=== PATIENT | female | born 1945 | race Caucasian/White ===

== ENCOUNTER 2017-10-20 08:18 | Emergency (ER) | payer OTHER ==
--- OUTSIDE RECORDS SUMMARY | 2017-10-20 08:21 | XMS REPORT | Clinical Summary ---
:1945 Author Organization [facility] Address [address] [place] [address] Care Team Providers Name Role Phone Rommel Sands MD Primary Care Provider Allergies Active Allergy Reactions Severity Noted Date Comments Codeine 09/19/2016 Current Medications Prescription Sig. Disp. Refills Start Date End Date Status metFORMIN (GLUCOPHAGE) 1,000 mg 2 06/20/2016 Active 1,000 mg tablet (two) times a day. hydroCHLOROthiazide 08/30/2016 Active (HYDRODIURIL) 25 MG tablet amLODIPine (NORVASC) 5 08/15/2016 Active mg tablet fenofibrate (TRICOR) 145 Take 145 mg Active MG tablet by mouth daily. aspirin (ECOTRIN) 81 MG Take 81 mg Active enteric coated tablet by mouth daily. losartan (COZAAR) 100 MG Take 100 mg Active tablet by mouth daily. glipiZIDE (GLUCOTROL) 5 Take 5 mg Active MG tablet by mouth 2 (two) times a day before meals. cilostazol (PLETAL) 100 TAKE ONE 60 tablet 1 04/21/2017 Active MG tablet TABLET BY MOUTH TWICE A DAY allopurinol (ZYLOPRIM) Take 100 mg Active 100 MG tablet by mouth daily. qb-wzmy-kjpay-lycopene-g Take by Active florenciogo 400-300-120 mouth. mcg-mcg-mg tablet allopurinol (ZYLOPRIM) 08/15/2016 Discontinued 100 MG tablet 7 cilostazol (PLETAL) 100 Take 1 60 tablet 2 11/13/2016 MG tablet tablet (100 7 mg total) by mouth 2 (two) times a day for 90 days. Active Problems Problem Noted Date PAD (peripheral artery disease) 11/13/2016 Last Assessment & Plan: E. Some, but inadequate improvement with Pletal. Plan for CTA. DM (diabetes mellitus) 11/13/2016 COPD (chronic obstructive pulmonary disease) 11/13/2016 Essential hypertension 11/13/2016 HLD (hyperlipidemia) 11/13/2016 Pancreatic pseudocyst 11/13/2016 Encounters Date Type Specialty Care Team Description 10/10/2017 Office Visit Endocrinology Bria Navarro MD Type 2 diabetes mellitus with peripheral vascular disease (Primary Dx); Chronic pancreatitis, unspecified pancreatitis type; Age related osteoporosis, unspecified pathological fracture presence 04/21/2017 Refill Cardiovascular Maxwell Vegas MD 03/28/2017 Telephone Cardiovascular Alessia Sibley 02/28/2017 Telephone Cardiovascular Maxwell Vegas MD 02/26/2017 Office Visit Cardiovascular Maxwell Vegas PAD (peripheral artery MD disease) (Primary Dx) 11/13/2016 Office Visit Cardiovascular Maxwell Vegas PAD (peripheral artery MD disease) (Primary Dx) after 10/19/2016 Family History Relation Name Status Comments Mother Social History Tobacco Use Types Packs/Day Years Used Date Former Smoker Quit: 2008 Sex Assigned at Date Recorded Not on file Last Filed Vital Signs Vital Sign Reading Time Taken Blood Pressure 155/68 10/10/2017 9:24 AM [employer] Pulse 85 10/10/2017 9:24 AM [employer] Temperature 36.3 C (97.4 F) 10/10/2017 9:24 AM [employer] Respiratory Rate 16 02/26/2017 2:45 PM CDT Oxygen Saturation 96% 10/10/2017 9:24 AM [employer] Inhaled Oxygen Concentration - - Weight 70.8 kg (156 lb) 10/10/2017 9:24 AM [employer] Height 160 cm (5' 3") 10/10/2017 9:24 AM [employer] Body Mass Index 27.63 10/10/2017 9:24 AM [employer] Plan of Treatment Date Type Specialty Care Team Description 01/16/2018 Office Visit Endocrinology Bria Navarro MD [address] [address] Health Maintenance Due Date Last Done Comments FOOT EXAM 1953 OPHTHALMOLOGY EXAM 1953 URINE MICROALBUMIN 1953 COLONOSCOPY 1993 MAMMOGRAM 1993 ZOSTER VACCINE 2003 PNEUMOCOCCAL POLYSACCHARIDE VACCINE AGE 65 AND OVER 2008 PNEUMOCOCCAL-13 2008 INFLUENZA VACCINE 03/06/2017 Results Bone Density Peripheral (10/10/2017 11:30 AM) Specimen Performing Laboratory [address] [address] Narrative EXAMINATION:BONE DENSITY PERIPHERAL CLINICAL HISTORY:M81.0 Age-related osteoporosis without current pathological fracture, Osteoporosis COMPARISON:None. The results of this study expressed as bone mineral density (BMD) were as follows: Left Forearm (Radius 33%): BMD: 0.827 g/cm2 T-Score: -0.7 Previous: percent Impression: Bone Mineral Density measurements as noted. [id number] A copy of this scans including a report detailing these results will follow. Note: The world health organization (WHO) has classified the patient's T-score as follows: Above (-1) as normal (-1) to (-2.5) as low (osteopenia) Below (-2.5) as abnormally low (osteoporosis, increased fracture risk) [id number] Procedure Note Interface, Radiology Results Incoming - 10/10/2017 3:15 PM [employer] EXAMINATION: BONE DENSITY PERIPHERAL CLINICAL HISTORY: M81.0 Age-related osteoporosis without current pathological fracture, Osteoporosis COMPARISON: None. The results of this study expressed as bone mineral density (BMD) were as follows: Left Forearm (Radius 33%): BMD: 0.827 g/cm2 T-Score: -0.7 Previous: percent Impression: Bone Mineral Density measurements as noted. [id number] A copy of this scans including a report detailing these results will follow. Note: The world health organization (WHO) has classified the patient's T-score as follows: Above (-1) as normal (-1) to (-2.5) as low (osteopenia) Below (-2.5) as abnormally low (osteoporosis, increased fracture risk) [id number] Bone Density (10/10/2017 11:30 AM) Specimen Performing Laboratory [address] [address] Narrative EXAMINATION:BONE DENSITY CLINICAL HISTORY:M81.0 Age-related osteoporosis without current pathological fracture, Osteoporosis COMPARISON:None. The results of this study expressed as bone mineral density (BMD) were as follows: AP spine (L1-L4) BMD: 1.264 g/cm2 T-Score: 0.6 Previous: % change from prior BMD Dual Femur (Total Mean): BMD: 1.053 g/cm2 T-Score: 0.4 Previous:% change from prior BMD Dual femur FRAX: Risk factors: None. 10 year probability of fracture: 1.Major osteoporotic: 15.3% 2.Hip: 2.3% 3.Based on dual femur right neck BMD Impression: Bone mineral density values as above. A copy of this scans including a report detailing these results will follow. Note: The world health organization (WHO) has classified the patient's T-score as follows: Above (-1) as normal (-1) to (-2.5) as low (osteopenia) Below (-2.5) as abnormally low (osteoporosis, increased fracture risk) [id number] Procedure Note Hm Interface, Radiology Results Incoming - 10/10/2017 2:38 PM [employer] EXAMINATION: BONE DENSITY CLINICAL HISTORY: M81.0 Age-related osteoporosis without current pathological fracture, Osteoporosis COMPARISON: None. The results of this study expressed as bone mineral density (BMD) were as follows: AP spine (L1-L4) BMD: 1.264 g/cm2 T-Score: 0.6 Previous: % change from prior BMD Dual Femur (Total Mean): BMD: 1.053 g/cm2 T-Score: 0.4 Previous: % change from prior BMD Dual femur FRAX: Risk factors: None. 10 year probability of fracture: 1. Major osteoporotic: 15.3% 2. Hip: 2.3% 3. Based on dual femur right neck BMD Impression: Bone mineral density values as above. A copy of this scans including a report detailing these results will follow. Note: The world health organization (WHO) has classified the patient's T-score as follows: Above (-1) as normal (-1) to (-2.5) as low (osteopenia) Below (-2.5) as abnormally low (osteoporosis, increased fracture risk) [id number] after 10/19/2016 Insurance Payer Benefit Plan / Group Subscriber ID Type Phone Address [facility] x[facility] HMO [address] [place] [address]
--- OUTSIDE RECORDS SUMMARY | 2017-10-20 08:22 | XMS REPORT ---
:1945 [facility] Address [address] [place] [address] Care Team Providers Name Role Phone RICHELLE TEJEDA Unavailable Unavailable Problems This patient has no known problems. Allergies, Adverse Reactions, Alerts This patient has no known allergies or adverse reactions. Medications This patient has no known medications. Results Test Description Test Time Test Comments Text Results Atomic Results Result Comments MISCELLANEOUS LAB ORDER 2017-07-09 14:50:00 Test Item Value Reference Range Comments SCAN RESULT (test [id number]=[id number]) HEMOGLOBIN AND [id number] 14:19:00 Test Item Value Reference Range Comments HEMOGLOBIN (BEAKER) (test nabi=225) 9.6 GM/DL 11.2-15.7 HEMATOCRIT (BEAKER) (test kukw=901) 28.7 % 34.1-44.9 POCT-GLUCOSE [id number] 12:14:00 Test Item Value Reference Range Comments POC-GLUCOSE METER (BEAKER) 236 mg/dL 70-110 TESTED AT [address] (test kstz=6693) [place] [address] [id number] 07:24:00 Test Item Value Reference Range Comments MAGNESIUM (BEAKER) (test dhes=482) 1.6 mg/dL 1.6-2.6 [id number] 07:24:00 Test Item Value Reference Range Comments LIPASE (BEAKER) (test gypc=669) 84 U/L 8-78 POCT-GLUCOSE [id number] 07:17:00 Test Item Value Reference Range Comments POC-GLUCOSE METER (BEAKER) 205 mg/dL 70-110 TESTED AT [address] (test xybi=7890) [facility] [address] HEMOGLOBIN AND [id number] 06:38:00 Test Item Value Reference Range Comments HEMOGLOBIN (BEAKER) (test khlb=882) 9.0 GM/DL 11.2-15.7 HEMATOCRIT (BEAKER) (test tpcy=142) 27.0 % 34.1-44.9 POCT-GLUCOSE [id number] 22:59:00 Test Item Value Reference Range Comments POC-GLUCOSE METER (BEAKER) 209 mg/dL 70-110 TESTED AT [address] (test palx=8256) [place] [address] HEMOGLOBIN AND [id number] 19:32:00 Test Item Value Reference Range Comments HEMOGLOBIN (BEAKER) (test yrwr=103) 7.4 GM/DL 11.2-15.7 HEMATOCRIT (BEAKER) (test wwtm=250) 22.4 % 34.1-44.9 POCT-GLUCOSE [id number] 17:08:00 Test Item Value Reference Range Comments POC-GLUCOSE METER (BEAKER) 257 mg/dL 70-110 TESTED AT [address] (test hkis=2929) [place] [id number] POCT-GLUCOSE [id number] 12:24:00 Test Item Value Reference Range Comments POC-GLUCOSE METER (BEAKER) 167 mg/dL 70-110 TESTED AT [address] (test onrm=8615) [place] [id number] HEMOGLOBIN AND [id number] 11:13:00 Test Item Value Reference Range Comments HEMOGLOBIN (BEAKER) (test jbrb=365) 7.2 GM/DL 11.2-15.7 HEMATOCRIT (BEAKER) (test konx=842) 21.8 % 34.1-44.9 FINE NEEDLE ASPIRATION BY [id number] 10:05:00Medical Cytology Report Case: [id number] Authorizing Provider: Miguel Obando MD Collected: 2016 1231 Ordering Location: [address] Received : 07/03/2017 1416 Service Pathologist: Sarmad Betts MD Specimen: Pancreas, Head PANCREAS HEAD CYST FNA BY CLINICIAN (CYTOSPINS AND CELL BLOCK OF ASPIRATE): - NO MALIGNANT CELLS IDENTIFIED - The mucin stain is positive Signing Pathologist Direct Phone Line: Preliminary result electronically signed by Sarmad Betts MD on at 10:49 AMThe cell block prepared in this case is essentially acellular.98291, 88779, 24447(6.0 X 6.5 cm) cystic lesion in the pancreatic headPANCREAS HEAD CYST FNA20 mls clear fluid; 4 cytospins, 1 mucin stain, cell blockCollected: [id number]: [id number] following special studies were performed on this case and the interpretation is incorporated in the diagnostic report above:[facility] [place], [facility], [address] [place] [address], [facility], [facility] of [facility]ology, [address] [place] [address] , AKFE-GLUCOSE [id number] 08:43:00 Test Item Value Reference Range Comments POC-GLUCOSE METER (BEAKER) 176 mg/dL 70-110 TESTED AT [address] (test ifdg=0847) [facility] [address] COMPREHENSIVE METABOLIC [id number] 07:04:00 Test Item Value Reference Range Comments TOTAL PROTEIN (BEAKER) 4.7 gm/dL 6.0-8.3 (test sbks=357) ALBUMIN (BEAKER) (test 2.8 g/dL 3.5-5.0 mkzj=8045) ALKALINE PHOSPHATASE 33 U/L 40-150 (BEAKER) (test fiqu=134) BILIRUBIN TOTAL (BEAKER) 0.4 mg/dL 0.2-1.2 (test kjlv=027) SODIUM (BEAKER) (test 144 meq/L 136-145 xaue=732) POTASSIUM (BEAKER) (test 3.6 meq/L 3.5-5.1 kkom=310) CHLORIDE (BEAKER) (test 115 meq/L 98-107 mrpq=087) CO2 (BEAKER) (test 24 meq/L 22-29 izhy=315) BLOOD UREA NITROGEN 16 mg/dL 7-21 (BEAKER) (test kuxm=101) CREATININE (BEAKER) (test 0.74 mg/dL 0.57-1.25 dwzc=177) GLUCOSE RANDOM (BEAKER) 168 mg/dL 70-105 (test cxeu=556) CALCIUM (BEAKER) (test 8.3 mg/dL 8.4-10.2 unbe=075) AST (SGOT) (BEAKER) (test 19 U/L 5-34 dxwp=009) ALT (SGPT) (BEAKER) (test 14 U/L 6-55 iaxm=829) EGFR (BEAKER) (test mL/min/1.73 sq m INSUFFICIENT CLINICAL DATA sarg=9613) TO CALCULATE ESTIMATED GFR. [id number] 07:02:00 Test Item Value Reference Range Comments MAGNESIUM (BEAKER) (test sxip=590) 1.8 mg/dL 1.6-2.6 [id number] 07:02:00 Test Item Value Reference Range Comments LIPASE (BEAKER) (test pndd=775) 81 U/L 8-78 CBC W/PLT COUNT & AUTO [id number] 07:01:00 Test Item Value Reference Range Comments WHITE BLOOD CELL COUNT (BEAKER) (test hfay=425) 6.0 K/ L 3.5-10.5 RED BLOOD CELL COUNT (BEAKER) (test zimr=902) 2.37 M/ L 3.93-5.22 HEMOGLOBIN (BEAKER) (test cmyr=946) 7.2 GM/DL 11.2-15.7 HEMATOCRIT (BEAKER) (test klvc=338) 21.3 % 34.1-44.9 MEAN CORPUSCULAR VOLUME (BEAKER) (test pkrg=886) 89.9 fL 79.4-94.8 MEAN CORPUSCULAR HEMOGLOBIN (BEAKER) (test 30.4 pg 25.6-32.2 amkm=567) MEAN CORPUSCULAR HEMOGLOBIN CONC (BEAKER) (test 33.8 GM/DL 32.2-35.5 hadf=066) RED CELL DISTRIBUTION WIDTH (BEAKER) (test 14.3 % 11.7-14.4 xhbr=807) PLATELET COUNT (BEAKER) (test gcbu=027) 226 K/CU MM 150-450 MEAN PLATELET VOLUME (BEAKER) (test suwq=567) 9.9 fL 9.4-12.3 NUCLEATED RED BLOOD CELLS (BEAKER) (test 0 /100 WBC 0-0 brsk=134) NEUTROPHILS RELATIVE PERCENT (BEAKER) (test 64 % wbih=419) LYMPHOCYTES RELATIVE PERCENT (BEAKER) (test 22 % tzbs=996) MONOCYTES RELATIVE PERCENT (BEAKER) (test 8 % jeje=652) EOSINOPHILS RELATIVE PERCENT (BEAKER) (test 5 % snns=761) BASOPHILS RELATIVE PERCENT (BEAKER) (test 1 % udov=331) NEUTROPHILS ABSOLUTE COUNT (BEAKER) (test 3.85 K/ L 1.56-6.13 hekg=212) LYMPHOCYTES ABSOLUTE COUNT (BEAKER) (test 1.31 K/ L 1.18-3.74 knef=663) MONOCYTES ABSOLUTE COUNT (BEAKER) (test 0.50 K/ L 0.24-0.36 phmv=544) EOSINOPHILS ABSOLUTE COUNT (BEAKER) (test 0.28 K/ L 0.04-0.36 imgw=968) BASOPHILS ABSOLUTE COUNT (BEAKER) (test 0.03 K/ L 0.01-0.08 xghr=812) IMMATURE GRANULOCYTES-RELATIVE PERCENT (BEAKER) 1 % 0-1 (test xdvy=4452) HEMOGLOBIN AND [id number] 23:52:00 Test Item Value Reference Range Comments HEMOGLOBIN (BEAKER) (test dvam=179) 7.9 GM/DL 11.2-15.7 HEMATOCRIT (BEAKER) (test doat=411) 23.7 % 34.1-44.9 POCT-GLUCOSE [id number] 21:52:00 Test Item Value Reference Range Comments POC-GLUCOSE METER (BEAKER) 152 mg/dL 70-110 TESTED AT [address] (test kkvp=8505) [place] [address] POCT-GLUCOSE [id number] 16:40:00 Test Item Value Reference Range Comments POC-GLUCOSE METER (BEAKER) 295 mg/dL 70-110 TESTED AT [address] (test wznk=2202) [place] [id number] HEMOGLOBIN AND [id number] 16:38:00 Test Item Value Reference Range Comments HEMOGLOBIN (BEAKER) (test mmss=687) 7.8 GM/DL 11.2-15.7 HEMATOCRIT (BEAKER) (test ltzg=550) 23.3 % 34.1-44.9 POCT-GLUCOSE [id number] 09:13:00 Test Item Value Reference Range Comments POC-GLUCOSE METER (BEAKER) 175 mg/dL 70-[address] [facility] [address] (test lfox=7867) [facility] [address] BLOOD GAS, [id number] 05:03:00 Test Item Value Reference Range Comments PH ARTERIAL (BEAKER) (test hgcz=028) 7.36 7.35-7.45 PCO2 ARTERIAL (BEAKER) (test yqlu=132) 39 mmHg 35-45 PO2 ARTERIAL (BEAKER) (test tnze=143) 121 mmHg 80-90 O2 SATURATION ARTERIAL (BEAKER) (test pfux=020) 98.3 % 96.0-97.0 HCO3 ARTERIAL (BEAKER) (test eten=054) 21 mmol/L 21-29 BASE EXCESS ARTERIAL (BEAKER) (test xwiu=784) -3.8 mmol/L -2.0-3.0 PATIENT TEMPERATURE (BEAKER) (test wsrk=8795) 37.0 C FIO2 (BEAKER) (test yzbx=6140) 40.0 % [id number] 04:55:00 Test Item Value Reference Range Comments PROTIME (BEAKER) (test dyjb=356) 15.7 seconds 11.7-14.7 INR (BEAKER) (test auuf=794) 1.3 <=5.9 PARTIAL THROMBOPLASTIN TIME (BEAKER) (test 24.8 seconds 22.5-36.0 ijlr=255) RECOMMENDED COUMADIN/WARFARIN INR THERAPY RANGESSTANDARD DOSE: 2.0 - 3.0 Includes: PROPHYLAXIS forvenous thrombosis, systemic embolization; TREATMENT for venous thrombosis and/or pulmonary embolus.HIGH RISK: Target INR is 2.5-3.5 for patients with mechanical heart valves.PROTHROMBIN [id number] 04:54: 00 Test Item Value Reference Range Comments PROTIME (BEAKER) (test wppb=112) 15.7 seconds 11.7-14.7 INR (BEAKER) (test pcrm=055) 1.3 <=5.9 RECOMMENDED COUMADIN/WARFARIN INR THERAPY RANGESSTANDARD DOSE: 2.0 - 3.0 Includes: PROPHYLAXIS forvenous thrombosis, systemic embolization; TREATMENT for venous thrombosis and/or pulmonary embolus.HIGH RISK: Target INR is 2.5-3.5 for patients with mechanical heart valves.COMPREHENSIVE METABOLIC [id number] 04:38:00 Test Item Value Reference Range Comments TOTAL PROTEIN (BEAKER) 4.1 gm/dL 6.0-8.3 (test nhzm=866) ALBUMIN (BEAKER) (test 2.4 g/dL 3.5-5.0 hyay=2007) ALKALINE PHOSPHATASE 25 U/L 40-150 (BEAKER) (test tlaf=661) BILIRUBIN TOTAL (BEAKER) < mg/dL 0.2-1.2 (test gfgx=987) SODIUM (BEAKER) (test 142 meq/L 136-145 heio=217) POTASSIUM (BEAKER) (test 3.6 meq/L 3.5-5.1 apve=851) CHLORIDE (BEAKER) (test 115 meq/L 98-107 dvyq=967) CO2 (BEAKER) (test 22 meq/L 22-29 fxfd=770) BLOOD UREA NITROGEN 25 mg/dL 7-21 (BEAKER) (test ouqc=584) CREATININE (BEAKER) (test 0.76 mg/dL 0.57-1.25 kczn=799) GLUCOSE RANDOM (BEAKER) 155 mg/dL 70-105 (test inyc=062) CALCIUM (BEAKER) (test 7.5 mg/dL 8.4-10.2 wmyy=102) AST (SGOT) (BEAKER) (test 15 U/L 5-34 rtzk=277) ALT (SGPT) (BEAKER) (test 11 U/L 6-55 xfln=739) EGFR (BEAKER) (test mL/min/1.73 sq m INSUFFICIENT CLINICAL DATA znpv=4900) TO CALCULATE ESTIMATED GFR. [id number] 04:31:00 Test Item Value Reference Range Comments MAGNESIUM (BEAKER) (test zokn=605) 1.8 mg/dL 1.6-2.6 [id number] 04:31:00 Test Item Value Reference Range Comments LIPASE (BEAKER) (test webg=811) 55 U/L 8-78 HEMOGLOBIN AND [id number] 04:15:00 Test Item Value Reference Range Comments HEMOGLOBIN (BEAKER) (test dcrs=889) 7.8 GM/DL 11.2-15.7 HEMATOCRIT (BEAKER) (test oqgm=805) 23.5 % 34.1-44.9 CBC W/PLT COUNT & AUTO [id number] 04:15:00 Test Item Value Reference Range Comments WHITE BLOOD CELL COUNT (BEAKER) (test xfdh=868) 8.1 K/ L 3.5-10.5 RED BLOOD CELL COUNT (BEAKER) (test oljx=633) 2.62 M/ L 3.93-5.22 HEMOGLOBIN (BEAKER) (test cilf=136) 7.8 GM/DL 11.2-15.7 HEMATOCRIT (BEAKER) (test kssv=598) 23.5 % 34.1-44.9 MEAN CORPUSCULAR VOLUME (BEAKER) (test edrz=421) 89.7 fL 79.4-94.8 MEAN CORPUSCULAR HEMOGLOBIN (BEAKER) (test 29.8 pg 25.6-32.2 mspy=059) MEAN CORPUSCULAR HEMOGLOBIN CONC (BEAKER) (test 33.2 GM/DL 32.2-35.5 ygaz=897) RED CELL DISTRIBUTION WIDTH (BEAKER) (test 14.0 % 11.7-14.4 awtv=856) PLATELET COUNT (BEAKER) (test bvnv=415) 206 K/CU MM 150-450 MEAN PLATELET VOLUME (BEAKER) (test edoz=376) 9.9 fL 9.4-12.3 NUCLEATED RED BLOOD CELLS (BEAKER) (test 0 /100 WBC 0-0 rxnv=898) NEUTROPHILS RELATIVE PERCENT (BEAKER) (test 67 % fcxf=536) LYMPHOCYTES RELATIVE PERCENT (BEAKER) (test 21 % mejb=336) MONOCYTES RELATIVE PERCENT (BEAKER) (test 8 % kwyr=476) EOSINOPHILS RELATIVE PERCENT (BEAKER) (test 3 % qgfn=187) BASOPHILS RELATIVE PERCENT (BEAKER) (test 0 % tqso=254) NEUTROPHILS ABSOLUTE COUNT (BEAKER) (test 5.44 K/ L 1.56-6.13 hqfh=679) LYMPHOCYTES ABSOLUTE COUNT (BEAKER) (test 1.69 K/ L 1.18-3.74 bgdy=828) MONOCYTES ABSOLUTE COUNT (BEAKER) (test 0.66 K/ L 0.24-0.36 lcba=200) EOSINOPHILS ABSOLUTE COUNT (BEAKER) (test 0.23 K/ L 0.04-0.36 xrag=518) BASOPHILS ABSOLUTE COUNT (BEAKER) (test 0.02 K/ L 0.01-0.08 szyz=042) IMMATURE GRANULOCYTES-RELATIVE PERCENT (BEAKER) 0 % 0-1 (test llcy=3708) [id number] 00:27:00 Test Item Value Reference Range Comments PROTIME (BEAKER) (test emtl=958) 16.2 seconds 11.7-14.7 INR (BEAKER) (test wzla=000) 1.3 <=5.9 PARTIAL THROMBOPLASTIN TIME (BEAKER) (test 27.9 seconds 22.5-36.0 vbyk=505) RECOMMENDED COUMADIN/WARFARIN INR THERAPY RANGESSTANDARD DOSE: 2.0 - 3.0 Includes: PROPHYLAXIS forvenous thrombosis, systemic embolization; TREATMENT for venous thrombosis and/or pulmonary embolus.HIGH RISK: Target INR is 2.5-3.5 for patients with mechanical heart valves.PROTHROMBIN TIME/[id number] 00:26: 00 Test Item Value Reference Range Comments PROTIME (BEAKER) (test dowu=862) 16.2 seconds 11.7-14.7 INR (BEAKER) (test mnsc=064) 1.3 <=5.9 RECOMMENDED COUMADIN/WARFARIN INR THERAPY RANGESSTANDARD DOSE: 2.0 - 3.0 Includes: PROPHYLAXIS forvenous thrombosis, systemic embolization; TREATMENT for venous thrombosis and/or pulmonary embolus.HIGH RISK: Target INR is 2.5-3.5 for patients with mechanical heart valves.HEMOGLOBIN AND [id number] 00 :12:00 Test Item Value Reference Range Comments HEMOGLOBIN (BEAKER) (test oqzh=137) 7.7 GM/DL 11.2-15.7 HEMATOCRIT (BEAKER) (test zbml=642) 22.9 % 34.1-44.9 CBC W/PLT COUNT & AUTO [id number] 00:12:00 Test Item Value Reference Range Comments WHITE BLOOD CELL COUNT (BEAKER) (test ygkf=989) 9.1 K/ L 3.5-10.5 RED BLOOD CELL COUNT (BEAKER) (test vhwf=877) 2.57 M/ L 3.93-5.22 HEMOGLOBIN (BEAKER) (test wmat=702) 7.7 GM/DL 11.2-15.7 HEMATOCRIT (BEAKER) (test bzgo=611) 22.9 % 34.1-44.9 MEAN CORPUSCULAR VOLUME (BEAKER) (test fhnr=096) 89.1 fL 79.4-94.8 MEAN CORPUSCULAR HEMOGLOBIN (BEAKER) (test 30.0 pg 25.6-32.2 dxdi=740) MEAN CORPUSCULAR HEMOGLOBIN CONC (BEAKER) (test 33.6 GM/DL 32.2-35.5 uroq=199) RED CELL DISTRIBUTION WIDTH (BEAKER) (test 13.6 % 11.7-14.4 lvci=520) PLATELET COUNT (BEAKER) (test jvyp=580) 202 K/CU MM 150-450 MEAN PLATELET VOLUME (BEAKER) (test ndod=823) 9.7 fL 9.4-12.3 NUCLEATED RED BLOOD CELLS (BEAKER) (test 0 /100 WBC 0-0 qtkz=829) NEUTROPHILS RELATIVE PERCENT (BEAKER) (test 69 % xhdp=770) LYMPHOCYTES RELATIVE PERCENT (BEAKER) (test 21 % ovub=927) MONOCYTES RELATIVE PERCENT (BEAKER) (test 8 % niff=688) EOSINOPHILS RELATIVE PERCENT (BEAKER) (test 1 % pfsq=574) BASOPHILS RELATIVE PERCENT (BEAKER) (test 0 % vrrg=436) NEUTROPHILS ABSOLUTE COUNT (BEAKER) (test 6.28 K/ L 1.56-6.13 qkih=156) LYMPHOCYTES ABSOLUTE COUNT (BEAKER) (test 1.95 K/ L 1.18-3.74 zoyl=497) MONOCYTES ABSOLUTE COUNT (BEAKER) (test 0.73 K/ L 0.24-0.36 cdgv=679) EOSINOPHILS ABSOLUTE COUNT (BEAKER) (test 0.12 K/ L 0.04-0.36 rxbr=631) BASOPHILS ABSOLUTE COUNT (BEAKER) (test 0.02 K/ L 0.01-0.08 hvqu=539) IMMATURE GRANULOCYTES-RELATIVE PERCENT (BEAKER) 0 % 0-1 (test obrp=4114) [id number] 22:46:00 Test Item Value Reference Range Comments PROTIME (BEAKER) (test sqws=895) 17.2 seconds 11.7-14.7 INR (BEAKER) (test qbud=853) 1.4 <=5.9 PARTIAL THROMBOPLASTIN TIME (BEAKER) (test > seconds 22.5-36.0 txsv=740) RECOMMENDED COUMADIN/WARFARIN INR THERAPY RANGESSTANDARD DOSE: 2.0 - 3.0 Includes: PROPHYLAXIS forvenous thrombosis, systemic embolization; TREATMENT for venous thrombosis and/or pulmonary embolus.HIGH RISK: Target INR is 2.5-3.5 for patients with mechanical heart valves.CBC W/PLT COUNT & AUTO [id number] 21:37:00 Test Item Value Reference Range Comments WHITE BLOOD CELL COUNT (BEAKER) (test lkke=952) 9.8 K/ L 3.5-10.5 RED BLOOD CELL COUNT (BEAKER) (test anpu=423) 2.90 M/ L 3.93-5.22 HEMOGLOBIN (BEAKER) (test mgjt=008) 8.6 GM/DL 11.2-15.7 HEMATOCRIT (BEAKER) (test gojs=470) 26.4 % 34.1-44.9 MEAN CORPUSCULAR VOLUME (BEAKER) (test tyoc=591) 91.0 fL 79.4-94.8 MEAN CORPUSCULAR HEMOGLOBIN (BEAKER) (test 29.7 pg 25.6-32.2 cyij=731) MEAN CORPUSCULAR HEMOGLOBIN CONC (BEAKER) (test 32.6 GM/DL 32.2-35.5 rpki=543) RED CELL DISTRIBUTION WIDTH (BEAKER) (test 13.2 % 11.7-14.4 qvib=355) PLATELET COUNT (BEAKER) (test rlgn=436) 232 K/CU MM 150-450 MEAN PLATELET VOLUME (BEAKER) (test cniy=345) 10.2 fL 9.4-12.3 NUCLEATED RED BLOOD CELLS (BEAKER) (test 0 /100 WBC 0-0 bdkc=686) NEUTROPHILS RELATIVE PERCENT (BEAKER) (test 70 % zbme=788) LYMPHOCYTES RELATIVE PERCENT (BEAKER) (test 21 % bjzx=504) MONOCYTES RELATIVE PERCENT (BEAKER) (test 7 % sjnu=104) EOSINOPHILS RELATIVE PERCENT (BEAKER) (test 1 % xdlw=318) BASOPHILS RELATIVE PERCENT (BEAKER) (test 0 % ecow=987) NEUTROPHILS ABSOLUTE COUNT (BEAKER) (test 6.84 K/ L 1.56-6.13 aejk=895) LYMPHOCYTES ABSOLUTE COUNT (BEAKER) (test 2.07 K/ L 1.18-3.74 nvyf=280) MONOCYTES ABSOLUTE COUNT (BEAKER) (test 0.72 K/ L 0.24-0.36 dbkf=633) EOSINOPHILS ABSOLUTE COUNT (BEAKER) (test 0.05 K/ L 0.04-0.36 jwoj=784) BASOPHILS ABSOLUTE COUNT (BEAKER) (test 0.02 K/ L 0.01-0.08 dpvj=173) IMMATURE GRANULOCYTES-RELATIVE PERCENT (BEAKER) 1 % 0-1 (test opvx=7678) POCT-GLUCOSE [id number] 21:35:00 Test Item Value Reference Range Comments POC-GLUCOSE METER (BEAKER) 181 mg/dL 70-[address] [facility] [address] [facility] (test inaa=3019) [facility] [address] PROTHROMBIN [id number] 21:27:00 Test Item Value Reference Range Comments PROTIME (BEAKER) (test sunn=419) 17.2 seconds 11.7-14.7 INR (BEAKER) (test retc=362) 1.4 <=5.9 RECOMMENDED COUMADIN/WARFARIN INR THERAPY RANGESSTANDARD DOSE: 2.0 - 3.0 Includes: PROPHYLAXIS forvenous thrombosis, systemic embolization; TREATMENT for venous thrombosis and/or pulmonary embolus.HIGH RISK: Target INR is 2.5-3.5 for patients with mechanical heart valves.CALCIUM, [id number] 21:04:00 Test Item Value Reference Range Comments CALCIUM IONIZED (BEAKER) (test fhrx=178) 1.10 mmol/L 1.12-1.27 PH, BLOOD (BEAKER) (test lbxk=4442) 7.30 RAD, CHEST, 1 VIEW, NON [id number] 19:27:00Reason for exam:-> intubationShould this be performed at the bedside?->YesFINAL REPORT Portable chest 07/04/2017 Since the previous study done five hours earlier, there is been placement of an endotracheal tube with its tip approximately 1 cm above thecarina. Right jugular catheter remains positioned with its tip in the midportion of superior vena cava. Minimal left lung base linear opacities appear to be slightly more visible, possibly representingatelectasis. Right lung is clear the exception of a calcified granuloma in the midportion. Heart size is normal. CONCLUSION: Endotracheal tube is only approximately 1 cm from the festus could be withdrawn 1 cm. This information was communicated to the patient's nurse Luis at 1927 hours Signed: Jj Kelly MDRaracelis Verified Date/Time: 07/04/2017 19:27:20 Reading Location : [facility] B1 C013W Consult Reading Room [id number] 19:23:00 Test Item Value Reference Range Comments MAGNESIUM (BEAKER) (test ngyq=503) 1.6 mg/dL 1.6-2.6 HEMOGLOBIN AND [id number] 19:06:00 Test Item Value Reference Range Comments HEMOGLOBIN (BEAKER) (test flfj=996) 8.5 GM/DL 11.2-15.7 HEMATOCRIT (BEAKER) (test uwee=206) 25.5 % 34.1-44.9 POCT-GLUCOSE [id number] 18:37:00 Test Item Value Reference Range Comments POC-GLUCOSE METER (BEAKER) 192 mg/dL 70-110 TESTED AT [address] (test wqah=6241) [facility] [address] HEMOGLOBIN AND [id number] 16:06:00 Test Item Value Reference Range Comments HEMOGLOBIN (BEAKER) (test bjxo=913) 7.3 GM/DL 11.2-15.7 HEMATOCRIT (BEAKER) (test kiul=050) 22.4 % 34.1-44.9 RAD, CHEST, 1 VIEW, NON [id number] 14:04:00Reason for exam:->central line insertionShould this be performed at the bedside?->YesFINAL REPORT INDICATION: central line insertion COMPARISON: None. TECHNIQUE: Chest radiograph, single view, portable technique. FINDINGS / IMPRESSION: There is a multilumen rightinternal jugular line terminates in the mid SVC. No pneumothorax, pulmonary edema, pneumonia, or pleural effusion is demonstrated. Calcified atherosclerotic plaque of the aortic arch is noted. Heart shadow normal in size. Osseous structures unremarkable. Signed: Lonny Reddy Verified Date/Time: 07/04/2017 14:04:51 Reading Location: [facility] Reading Room OCCULT BLOOD, [id number] 12:15:00 Test Item Value Reference Range Comments FECAL OCCULT BLOOD (BEAKER) (test ksff=851) Positive Negative HEMOGLOBIN AND [id number] 11:49:00 Test Item Value Reference Range Comments HEMOGLOBIN (BEAKER) (test varl=374) 4.0 GM/DL 11.2-15.7 HEMATOCRIT (BEAKER) (test gvsk=766) 12.3 % 34.1-44.9 LACTIC ACID, VENOUS, WHOLE [id number] 11:37:00 Test Item Value Reference Range Comments LACTATE BLOOD VENOUS (2) (BEAKER) (test 0.9 mmol/L 0.5-2.2 bfow=7070) Effective 12/08/2015: Units/Reference Range ChangeNew: 0.5-2.2 mmol/L Previous: 5 -20 mg/dLCBC W/PLT COUNT & AUTO [id number] 09:17:00 Test Item Value Reference Range Comments WHITE BLOOD CELL COUNT (BEAKER) (test vxkk=800) 5.6 K/ L 3.5-10.5 RED BLOOD CELL COUNT (BEAKER) (test nvvt=593) 1.87 M/ L 3.93-5.22 HEMOGLOBIN (BEAKER) (test kvpk=063) 5.6 GM/DL 11.2-15.7 HEMATOCRIT (BEAKER) (test ipkr=613) 17.4 % 34.1-44.9 MEAN CORPUSCULAR VOLUME (BEAKER) (test xkky=492) 93.0 fL 79.4-94.8 MEAN CORPUSCULAR HEMOGLOBIN (BEAKER) (test 29.9 pg 25.6-32.2 jext=073) MEAN CORPUSCULAR HEMOGLOBIN CONC (BEAKER) (test 32.2 GM/DL 32.2-35.5 esml=836) RED CELL DISTRIBUTION WIDTH (BEAKER) (test 13.2 % 11.7-14.4 eydm=079) PLATELET COUNT (BEAKER) (test ngjh=136) 322 K/CU MM 150-450 MEAN PLATELET VOLUME (BEAKER) (test xqqv=207) 9.7 fL 9.4-12.3 NUCLEATED RED BLOOD CELLS (BEAKER) (test 0 /100 WBC 0-0 heyg=669) NEUTROPHILS RELATIVE PERCENT (BEAKER) (test 71 % lxov=150) LYMPHOCYTES RELATIVE PERCENT (BEAKER) (test 21 % uvbs=418) MONOCYTES RELATIVE PERCENT (BEAKER) (test 7 % rveu=453) EOSINOPHILS RELATIVE PERCENT (BEAKER) (test 1 % llem=923) BASOPHILS RELATIVE PERCENT (BEAKER) (test 0 % jhsz=228) NEUTROPHILS ABSOLUTE COUNT (BEAKER) (test 3.97 K/ L 1.56-6.13 arxu=620) LYMPHOCYTES ABSOLUTE COUNT (BEAKER) (test 1.18 K/ L 1.18-3.74 dvle=655) MONOCYTES ABSOLUTE COUNT (BEAKER) (test 0.38 K/ L 0.24-0.36 tugr=940) EOSINOPHILS ABSOLUTE COUNT (BEAKER) (test 0.07 K/ L 0.04-0.36 ofqt=899) BASOPHILS ABSOLUTE COUNT (BEAKER) (test 0.01 K/ L 0.01-0.08 xrzg=454) IMMATURE GRANULOCYTES-RELATIVE PERCENT (BEAKER) 0 % 0-1 (test fdas=7526) POCT-GLUCOSE [id number] 07:57:00 Test Item Value Reference Range Comments POC-GLUCOSE METER (BEAKER) 235 mg/dL 70-[address] [facility] [address] [facility] (test mxlm=4709) [facility] [address] COMPREHENSIVE METABOLIC [id number] 07:53:00 Test Item Value Reference Range Comments TOTAL PROTEIN (BEAKER) 4.7 gm/dL 6.0-8.3 (test rgfr=203) ALBUMIN (BEAKER) (test 2.6 g/dL 3.5-5.0 tdgr=2102) ALKALINE PHOSPHATASE 29 U/L 40-150 (BEAKER) (test skif=547) BILIRUBIN TOTAL (BEAKER) 0.3 mg/dL 0.2-1.2 (test oiwm=789) SODIUM (BEAKER) (test 142 meq/L 136-145 wsao=937) POTASSIUM (BEAKER) (test 3.9 meq/L 3.5-5.1 atbz=469) CHLORIDE (BEAKER) (test 112 meq/L 98-107 cung=032) CO2 (BEAKER) (test 22 meq/L 22-29 omfj=827) BLOOD UREA NITROGEN 26 mg/dL 7-21 (BEAKER) (test udcx=164) CREATININE (BEAKER) (test 0.74 mg/dL 0.57-1.25 lyhh=950) GLUCOSE RANDOM (BEAKER) 168 mg/dL 70-105 (test fibq=699) CALCIUM (BEAKER) (test 8.0 mg/dL 8.4-10.2 hdbm=941) AST (SGOT) (BEAKER) (test 15 U/L 5-34 ucja=572) ALT (SGPT) (BEAKER) (test 13 U/L 6-55 yzgi=286) EGFR (BEAKER) (test mL/min/1.73 sq m INSUFFICIENT CLINICAL DATA yvih=8422) TO CALCULATE ESTIMATED GFR. [id number] 07:36:00 Test Item Value Reference Range Comments PHOSPHORUS (BEAKER) (test dlzd=013) 2.4 mg/dL 2.3-4.7 [id number] 07:36:00 Test Item Value Reference Range Comments MAGNESIUM (BEAKER) (test dyns=468) 1.2 mg/dL 1.6-2.6 PROTHROMBIN [id number] 06:46:00 Test Item Value Reference Range Comments PROTIME (BEAKER) (test cjac=765) 15.0 seconds 11.7-14.7 INR (BEAKER) (test mxqh=920) 1.2 <=5.9 RECOMMENDED COUMADIN/WARFARIN INR THERAPY RANGESSTANDARD DOSE: 2.0 - 3.0 Includes: PROPHYLAXIS forvenous thrombosis, systemic embolization; TREATMENT for venous thrombosis and/or pulmonary embolus.HIGH RISK: Target INR is 2.5-3.5 for patients with mechanical heart valves.POCT-GLUCOSE [id number] 06:13:00 Test Item Value Reference Range Comments POC-GLUCOSE METER (BEAKER) 227 mg/dL 70-[address] [facility] [address] [place] [address] (test bset=1112) [facility] [address] POCT-GLUCOSE [id number] 20:55:00 Test Item Value Reference Range Comments POC-GLUCOSE METER (BEAKER) 165 mg/dL 70-[address] [facility] [address] [facility] (test msld=3867) [facility] [address] POCT-GLUCOSE [id number] 17:33:00 Test Item Value Reference Range Comments POC-GLUCOSE METER (BEAKER) 217 mg/dL 70-110 TESTED AT [address] (test xyfy=8599) [place] [address] FINE NEEDLE ASPIRATE (FNA) [id number] 16:01:00 Test Item Value Reference Range Comments CYTOLOGY RESULT POINTER (BEAKER) (test See Separate Report gcxs=0875) AMYLASE, BODY [id number] 16:00:00 Test Item Value Reference Range Comments AMYLASE FLUID (BEAKER) (test xtau=471) 1196 U/L Absence of reference range indicates that normals have not been defined.Assay performance has not been validated for this type of specimen.POCT-GLUCOSE [id number] 13:13:00 Test Item Value Reference Range Comments POC-GLUCOSE METER (BEAKER) 114 mg/dL 70-110 TESTED AT [address] (test nztw=0906) [place] [address] HEMOGLOBIN [id number] 08:46:00 Test Item Value Reference Range Comments HEMOGLOBIN A1C (BEAKER) (test lwww=527) 7.4 % 4.3-6.1 POCT-GLUCOSE [id number] 07:22:00 Test Item Value Reference Range Comments POC-GLUCOSE METER (BEAKER) 126 mg/dL 70-110 TESTED AT [address] (test ovdb=9852) [place] [address] COMPREHENSIVE METABOLIC [id number] 06:06:00 Test Item Value Reference Range Comments TOTAL PROTEIN (BEAKER) 6.3 gm/dL 6.0-8.3 (test khec=929) ALBUMIN (BEAKER) (test 3.3 g/dL 3.5-5.0 apmz=1741) ALKALINE PHOSPHATASE 37 U/L 40-150 (BEAKER) (test qbyj=042) BILIRUBIN TOTAL (BEAKER) 0.3 mg/dL 0.2-1.2 (test aexy=673) SODIUM (BEAKER) (test 141 meq/L 136-145 ngnn=639) POTASSIUM (BEAKER) (test 3.5 meq/L 3.5-5.1 eapj=098) CHLORIDE (BEAKER) (test 108 meq/L 98-107 vqse=546) CO2 (BEAKER) (test 23 meq/L 22-29 ztju=723) BLOOD UREA NITROGEN 19 mg/dL 7-21 (BEAKER) (test fdlz=459) CREATININE (BEAKER) (test 0.77 mg/dL 0.57-1.25 odbc=382) GLUCOSE RANDOM (BEAKER) 112 mg/dL 70-105 (test zsen=708) CALCIUM (BEAKER) (test 9.1 mg/dL 8.4-10.2 tncc=592) AST (SGOT) (BEAKER) (test 19 U/L 5-34 sqcu=125) ALT (SGPT) (BEAKER) (test 16 U/L 6-55 abka=141) EGFR (BEAKER) (test mL/min/1.73 sq m INSUFFICIENT CLINICAL DATA ppno=8991) TO CALCULATE ESTIMATED GFR. CBC (HEMOGRAM ONLY)2017-07-03 05:01:00 Test Item Value Reference Range Comments WHITE BLOOD CELL COUNT (BEAKER) (test fyjr=231) 7.1 K/ L 3.5-10.5 RED BLOOD CELL COUNT (BEAKER) (test wfwt=638) 3.39 M/ L 3.93-5.22 HEMOGLOBIN (BEAKER) (test jngk=474) 10.1 GM/DL 11.2-15.7 HEMATOCRIT (BEAKER) (test phlv=977) 31.0 % 34.1-44.9 MEAN CORPUSCULAR VOLUME (BEAKER) (test obir=499) 91.4 fL 79.4-94.8 MEAN CORPUSCULAR HEMOGLOBIN (BEAKER) (test 29.8 pg 25.6-32.2 xbvw=994) MEAN CORPUSCULAR HEMOGLOBIN CONC (BEAKER) (test 32.6 GM/DL 32.2-35.5 skfr=642) RED CELL DISTRIBUTION WIDTH (BEAKER) (test 13.1 % 11.7-14.4 cwgz=042) PLATELET COUNT (BEAKER) (test fddj=214) 415 K/CU MM 150-450 MEAN PLATELET VOLUME (BEAKER) (test fhcw=728) 10.2 fL 9.4-12.3 NUCLEATED RED BLOOD CELLS (BEAKER) (test 0 /100 WBC 0-0 qlgj=340) POCT-GLUCOSE [id number] 20:56:00 Test Item Value Reference Range Comments POC-GLUCOSE METER (BEAKER) 124 mg/dL 70-[address] [facility] [address] [facility] (test qwmt=0597) [facility] [address] LIPID [id number] 15:46:00 Test Item Value Reference Range Comments TRIGLYCERIDES (BEAKER) (test feya=680) 132 mg/dL CHOLESTEROL (BEAKER) (test pida=454) 99 mg/dL HDL CHOLESTEROL (BEAKER) (test uprj=758) 34 mg/dL LDL CHOLESTEROL CALCULATED (BEAKER) (test 39 mg/dL rngt=412) Triglyceride Reference Range: Low Risk <150 Borderline 150- 199 High Risk 200-499 Very High Risk >=500Cholesterol Reference Range: Low Risk <200 Borderline 200-239 High Risk > 240HDL Cholesterol Reference Range: Low Risk >=60 High Risk <40LDL Cholesterol Reference Range: Optimal <100 Near Optimal 100-129 Borderline 130-159 High 160-189 Very High >=190URINALYSIS W/ [id number] 14:48:00 Test Item Value Reference Range Comments COLOR (BEAKER) (test khkh=813) Yellow CLARITY (BEAKER) (test osxy=563) Clear SPECIFIC GRAVITY UA (BEAKER) (test akfj=356) 1.013 1.001-1.035 PH UA (BEAKER) (test ntbz=190) 6.0 5.0-8.0 PROTEIN UA (BEAKER) (test bsod=984) 50 mg/dL Negative GLUCOSE UA (BEAKER) (test mvgk=883) 50 mg/dL Negative KETONES UA (BEAKER) (test lzsq=935) Negative Negative BILIRUBIN UA (BEAKER) (test zvrp=752) Negative Negative BLOOD UA (BEAKER) (test kzdz=684) Negative Negative NITRITE UA (BEAKER) (test nqkk=610) Positive Negative LEUKOCYTE ESTERASE UA (BEAKER) (test mlgc=381) Large Negative UROBILINOGEN UA (BEAKER) (test ixly=693) 0.2 mg/dL 0.2-1.0 RBC UA (BEAKER) (test wjhb=686) < /HPF WBC UA (BEAKER) (test iyui=015) 16 /HPF SQUAMOUS EPITHELIAL (BEAKER) (test ppry=198) 1 /HPF SOURCE(BEAKER) (test qctr=2867) POCT-GLUCOSE [id number] 12:13:00 Test Item Value Reference Range Comments POC-GLUCOSE METER (RIMA) 123 mg/dL 70-[address] [facility] [address] (test qtwb=4950) [facility] [address]
[2017-10-20] MEDS ORDERED: MORPHINE 4 MG/ML SYR ONE (09:14)
[2017-10-20] MEDS ORDERED: ONDANSETRON 4 MG (ODT) TAB ONE (09:14)
--- NOTE | 2017-10-20 09:33 | EDPHYS ---
Physician Documentation [facility] Name: Tonia Schneider Age: 72 yrs Sex: Female : 1945 Arrival Date: 10/20/2017 Time: 08:22 Bed 7 Private MD: Rommel Sands E ED Physician Radha Odell HPI: 10/20 08:50 This 72 yrs old Female presents to ER via Ambulatory with complaints of Back kb Pain, Leg Pain. 08:50 The patient presents with pain that is chronic, with no known mechanism of injury, and kb tenderness. The symptoms are located in the low back. Onset: The symptoms/episode began/occurred and became worse last night, "a long long time". The pain radiates to the right leg. Associated signs and symptoms: The patient has no apparent associated signs or symptoms. The problem was sustained from a chronic condition, the patient has had previous back surgery. Modifying factors: The patient symptoms are alleviated by nothing, the patient symptoms are aggravated by any movement. Severity of symptoms: At their worst the symptoms were moderate, in the emergency department the symptoms are unchanged. The patient has experienced similar episodes in the past, chronically. The patient has not recently seen a physician. Pt states she has chronic low back pain and has had surgery for it before. States she had a massage yesterday and now the pain is worse than normal. Reports pain that radiates down right leg. States "Something is pushing on my sciatic". 08:55 Pt takes aleve and robaxin for back pain. Last saw back surgeon a year ago and was told kb there was nothing to do to fix her pain.. Historical: - Allergies: 08:30 Codeine; hj - Home Meds: 08:30 allopurinol 100 mg Oral tab 1 tab once daily [Active]; amlodipine 5 mg tab 1 tab once hj daily [Active]; aspirin 81 mg Oral TbEC 1 tab once daily [Active]; atorvastatin 40 mg Oral tab 1 tab once daily [Active]; cilostazol 100 mg Oral tab 1 tab 2 times per day [Active]; fenofibrate 145 MG Oral once daily [Active]; ginkgo biloba 120 mg Oral tab daily [Active]; glipizide 5 mg Oral tab 1 tab 2 times per day [Active]; hydrochlorothiazide 25 mg Oral tab 1 tab once daily [Active]; loperamide 2 mg Oral tab 1 tabs 1-3 times a day [Active]; losartan 100 mg Oral tab 1 tab once daily [Active]; metformin 1,000 mg Oral tr24 1 tab twice a day [Active]; - PMHx: 08:30 Arthritis; COPD; Diabetes - NIDDM; Gout; High Cholesterol; Hyperlipidemia; hj Hypertension; Pancreatitis; - PSHx: 08:30 feet; back; Tubal ligation; Bladder suspension; Appendectomy; Cholecystectomy; hj pancreatic mass; - Immunization history:: Adult Immunizations unknown. - Social history:: Smoking status: . ROS: 08:50 Constitutional: Negative for fever, chills, and weight loss, Cardiovascular: Negative kb for chest pain, palpitations, and edema, Respiratory: Negative for shortness of breath, cough, wheezing, and pleuritic chest pain, Abdomen/GI: Negative for abdominal pain, nausea, vomiting, diarrhea, and constipation, : Negative for injury, bleeding, discharge, and swelling, MS/Extremity: Negative for injury and deformity, Skin: Negative for injury, rash, and discoloration, Neuro: Negative for headache, weakness, numbness, tingling, and seizure. 08:50 Back: Positive for pain at rest, pain with movement, radiated pain. Exam: 08:50 Constitutional: This is a well developed, well nourished patient who is awake, alert, kb and in no acute distress. Head/Face: Normocephalic, atraumatic. Chest/axilla: Normal chest wall appearance and motion. Nontender with no deformity. No lesions are appreciated. Cardiovascular: Regular rate and rhythm with a normal S1 and S2. No gallops, murmurs, or rubs. Normal PMI, no JVD. No pulse deficits. Respiratory: Lungs have equal breath sounds bilaterally, clear to auscultation and percussion. No rales, rhonchi or wheezes noted. No increased work of breathing, no retractions or nasal flaring. Abdomen/GI: Soft, non-tender, with normal bowel sounds. No distension or tympany. No guarding or rebound. No evidence of tenderness throughout. Skin: Warm, dry with normal turgor. Normal color with no rashes, no lesions, and no evidence of cellulitis. MS/ Extremity: Pulses equal, no cyanosis. Neurovascular intact. Full, normal range of motion. Neuro: Awake and alert, GCS 15, oriented to person, place, time, and situation. Cranial nerves II-XII grossly intact. Motor strength 5/5 in all extremities. Sensory grossly intact. Cerebellar exam normal. Normal gait. 08:50 Back: pain, that is moderate, of the left low back and right low back, ROM is normal, normal spinal alignment noted. Vital Signs: 08:31 BP 137 / 78; Pulse 76; Resp 18; Temp 97.2(TE); Pulse Ox 98% on R/A; Weight 68.95 kg; hj Height 5 ft. 1 in. (154.94 cm); Pain 10/10; 08:31 Body Mass Index 28.72 (68.95 kg, 154.94 cm) hj MDM: 08:39 Patient medically screened. kb 08:47 Data reviewed: vital signs, nurses notes. Data interpreted: Pulse oximetry: on room air kb is 98 %. Interpretation: normal. 08:50 Counseling: I had a detailed discussion with the patient and/or guardian regarding: the kb historical points, exam findings, and any diagnostic results supporting the discharge/admit diagnosis, the need for outpatient follow up, a family practitioner, to return to the emergency department if symptoms worsen or persist or if there are any questions or concerns that arise at home. Administered Medications: 08:59 Drug: Zofran 4 mg Route: PO; sg 09:15 Follow up: Response: No adverse reaction sg 09:15 Drug: morphine 4 mg Route: IM; Site: right deltoid; sg 09:41 Follow up: Response: No adverse reaction; Pain is decreased sg Disposition: 18:43 Co-signature as Attending Physician, Radha Odell MD. ma2 Disposition: 10/20/17 09:33 Discharged to Home. Impression: Low back pain. - Condition is Stable. - Discharge Instructions: Back Pain, Adult, Pper-ik-Oosy, Sciatica, [id number]-[id number]. - Medication Reconciliation Form, Thank You Letter, Antibiotic Education, Prescription Opioid Use form. - Follow up: Emergency Department; When: As needed; Reason: Worsening of condition. Follow up: Private Physician; When: 2 - 3 days; Reason: Recheck today's complaints, Continuance of care, Re-evaluation by your physician. Signatures: Celina Resendiz, COLLECTIONS CLERK-C COLLECTIONS CLERK-Ckb William Aceves RN RN sg Cory Proctor, RN RN hj Radha Odell MD MD ma2
--- NOTE | 2017-10-20 09:33 | ER ---
Nurse's Notes [facility] Name: Tonia Schneider Age: 72 yrs Sex: Female : 1945 Arrival Date: 10/20/2017 Time: 08:22 Bed 7 Private MD: Rommel Sands E Diagnosis: Low back pain Presentation: 10/20 08:26 Presenting complaint: Patient states: i have hx of bone spur, my lower back hurts when hj im sitting, standing and lying down and it got worse last night and it woke me up; i took Aleve and its not helping; denies numbness and tingling on bilateral legs; pain is 10/10 constant pain;. Transition of care: patient was not received from another setting of care. Onset of symptoms was October 20, 2017. Care prior to arrival: None. 08:26 Method Of Arrival: Ambulatory 08:26 Acuity: HORACIO 4 hj Triage Assessment: 08:31 General: Appears in no apparent distress. uncomfortable, Behavior is cooperative, hj appropriate for age. Pain: Complains of pain in left low back and right low back. Musculoskeletal: Circulation, motion, and sensation intact. Capillary refill < 3 seconds, Range of motion: intact in all extremities. Historical: - Allergies: 08:30 Codeine; hj - Home Meds: 08:30 allopurinol 100 mg Oral tab 1 tab once daily [Active]; amlodipine 5 mg tab 1 tab once hj daily [Active]; aspirin 81 mg Oral TbEC 1 tab once daily [Active]; atorvastatin 40 mg Oral tab 1 tab once daily [Active]; cilostazol 100 mg Oral tab 1 tab 2 times per day [Active]; fenofibrate 145 MG Oral once daily [Active]; ginkgo biloba 120 mg Oral tab daily [Active]; glipizide 5 mg Oral tab 1 tab 2 times per day [Active]; hydrochlorothiazide 25 mg Oral tab 1 tab once daily [Active]; loperamide 2 mg Oral tab 1 tabs 1-3 times a day [Active]; losartan 100 mg Oral tab 1 tab once daily [Active]; metformin 1,000 mg Oral tr24 1 tab twice a day [Active]; - PMHx: 08:30 Arthritis; COPD; Diabetes - NIDDM; Gout; High Cholesterol; Hyperlipidemia; hj Hypertension; Pancreatitis; - PSHx: 08:30 feet; back; Tubal ligation; Bladder suspension; Appendectomy; Cholecystectomy; hj pancreatic mass; - Immunization history:: Adult Immunizations unknown. - Social history:: Smoking status: . Screenin:45 Abuse screen: Denies threats or abuse. Denies injuries from another. Nutritional sg screening: No deficits noted. Tuberculosis screening: No symptoms or risk factors identified. Never had TB. Fall Risk None identified. Assessment: 08:45 Reassessment: Patient appears in no apparent distress at this time. General: Appears in sg no apparent distress. comfortable, well groomed, well developed, well nourished, Behavior is calm, cooperative, appropriate for age. Pain: Complains of pain in right leg and left leg and right low back and left low back Quality of pain is described as sharp, shooting. Neuro: Level of Consciousness is awake, alert, obeys commands, Oriented to person, place, time, Moves all extremities. Gait is steady, Speech is normal. Cardiovascular: Heart tones S1 S2 present Capillary refill is brisk in bilateral fingers Patient's skin is warm and dry. Chest pain is denied. Respiratory: Airway is patent Respiratory effort is even, unlabored, Respiratory pattern is regular, symmetrical, Breath sounds are clear. GI: No signs and/or symptoms were reported involving the gastrointestinal system. : No signs and/or symptoms were reported regarding the genitourinary system. EENT: No signs and/or symptoms were reported regarding the EENT system. Derm: Skin is pink, warm \\T\\ dry. Musculoskeletal: Circulation, motion, and sensation intact. Range of motion: intact in all extremities, Swelling absent. 08:50 Reassessment: ordered to hold the morphine until a family member is visualized in the sg room with the patient. 09:00 Reassessment: pt visualized sitting upright on edge of bed with feet on the ground, sg holding a book open for reading, pt awaiting the arrival of her spouse prior to being administered IM morphine. 09:15 Reassessment: Patient appears in no apparent distress at this time. Patient and/or sg family updated on plan of care and expected duration. Pain level reassessed. pt spouse at bedside at this time, pt requesting a prescription for pain medication prior to leaving to home. 09:40 Reassessment: Patient appears in no apparent distress at this time. Patient and/or sg family updated on plan of care and expected duration. Pain level reassessed. pt informed that the PCP Deandre SEGURA that she said youre currently taking medications at home that will help with todays symptoms, pt states " Im gonna be back up here because of the pain if she doesn't give me any medication for at home.". Vital Signs: 08:31 BP 137 / 78; Pulse 76; Resp 18; Temp 97.2(TE); Pulse Ox 98% on R/A; Weight 68.95 kg; hj Height 5 ft. 1 in. (154.94 cm); Pain 10/10; 08:31 Body Mass Index 28.72 (68.95 kg, 154.94 cm) hj ED Course: 08:22 Patient arrived in ED. rg4 08:22 Rommel Sands MD is Private Physician. rg4 08:29 Triage completed. hj 08:31 Arm band placed on left wrist. hj 08:36 William Aceves, RN is Primary Nurse. sg 08:39 Celina Resendiz F[facility]-C [facility]. kb 08:39 Radha Odell MD is Attending Physician. kb 08:45 Patient has correct armband on for positive identification. Bed in low position. Call sg light in reach. Pulse ox on. NIBP on. 09:40 No provider procedures requiring assistance completed. Patient did not have IV access sg during this emergency room visit. Administered Medications: 08:59 Drug: Zofran 4 mg Route: PO; sg 09:15 Follow up: Response: No adverse reaction sg 09:15 Drug: morphine 4 mg Route: IM; Site: right deltoid; sg 09:41 Follow up: Response: No adverse reaction; Pain is decreased sg Outcome: 09:33 Discharge ordered by . kb 09:45 Discharged to home ambulatory, with family. sg 09:45 Condition: good 09:45 Discharge instructions given to patient, family, Instructed on discharge instructions, follow up and referral plans. safety practices, Demonstrated understanding of instructions, follow-up care. 09:51 Patient left the ED. sg Signatures: Celina Resendiz FNP-C FNP-William Norwood RN RN sg Joaquin, Henry, RN RN hj Garcia, Rubi rg4 Corrections: (The following items were deleted from the chart) 08:33 08:31 Pulse 76bpm; Resp 18bpm; Pulse Ox 98% RA; Temp 97.2F Temporal; 68.95 kg; Height 5 hj ft. 1 in.; BMI: 28.7; Pain 10; hj
== END 2017-10-20 09:51 | disposition home or self-care (01) ==
LOC: ER 08:18
DX: M54.5 Low back pain (principal); I10 Essential (primary) hypertension; E11.9 Type 2 diabetes mellitus without complications; J44.9 Chronic obstructive pulmonary disease, unspecified; E78.00 Pure hypercholesterolemia, unspecified; Z79.82 Long term (current) use of aspirin; Z88.5 Allergy status to narcotic agent
CPT/HCPCS: 96372; 99283